=== PATIENT | male | born 1975 | race Two or more races ===

== ENCOUNTER 2024-07-24 02:22 | Emergency (ER) | payer OTHER ==
[~2024-07-24] VITALS: Ht 180.3 cm; Wt 101.7 kg
[2024-07-24 02:22] VITALS: BP 138/84; PULSE 92; RESP 12; TEMP 99.2; O2SAT 96
--- NOTE | 2024-07-24 02:48 | ED.PDOC ---
History of Present Illness HPI Comments 49-year-old male presents with a chief complaint of abdominal pain, SOB, hematemesis, alcohol abuse, and methamphetamine abuse. Denies any black or bloody stool. He reports bright red blood in the vomit with a past 2 weeks. Patient reports history of peptic ulcer disease with perforated ulcer in the past. He has not follow up with the primary care provider since he has been released from shelter. Chief Complaint: Shortness of Breath Time Seen by MD: 02:37 Reviewed Notes: Medications, Allergies Allergies: Coded Allergies: NO KNOWN ALLERGIES (Unverified , 07/24/24) Information Source: Patient Mode of Arrival: Ambulatory Severity: Moderate Timing: Weeks Duration: Intermittent Prehospital treatment: None Vital Signs Vital Signs Date Time Temp Pulse Resp B/P (MAP) Pulse Ox O2 Delivery O2 Flow Rate FiO2 07/24/24 02:22 99.2 92 12 138/84 (102) 96 99.2 Physical Exam General: Awake, alert and oriented. No acute distress. Skin: Skin in warm, dry and intact. Appropriate color for ethnicity. HEENT: The head is normocephalic and atraumatic. Conjunctivae are clear without exudates or hemorrhage. Sclera is non-icteric. EOM are intact. No signs of nystagmus. Eyelids are normal in appearance without swelling or lesions. Oral mucosa is pink and moist Neck: The neck is supple with normal range of motion. No JVD. Cardiac: Heart rate and rhythm are normal. No murmurs, gallops, or rubs are auscultated. Respiratory: No signs of respiratory distress. Lung sounds are clear in all lobes bilaterally without rales, rhonchi, or wheezes. Abdominal: Abdomen is soft, generally tender without distention. No CVA tenderness Bowel sounds are present and normoactive in all four quadrants. Extremities: Upper and lower extremities are atraumatic in appearance without deformity or edema. Neurological: The patient is awake, alert and oriented to person, place, and time with normal speech. Speech is clear. There is no facial asymmetry. Psychiatric: Appropriate mood and affect. Review of Systems: REVIEW OF SYSTEMS: No fever, no chills, or fatigue HEENT: No sore throat, no earache, no congestion, no neck pain. Cardiac: No chest pain. No palpitations. Lungs: No shortness of breath, no cough. GI: No nausea, no vomiting, no diarrhea, no constipation, no abdominal pain : No dysuria, frequency, or urgency. No hematuria. Musculoskeletal: No joint pain , no joint swelling, no extremity edema. Skin: No rash, no itching. Neuro: No headache, no dizziness, no weakness Past Medical History PAST MEDICAL HISTORY: High Lipids Past Medical History (Other): Gastric Ulcer Disease Surgical History: Denies all surgeries Family History Family History: Reviewed,noncontributory to illness Social History Smoker: Cigarettes Alcohol: Heavy Drugs: Methamphetamine Lives In: Home Was a procedure done? Was a procedure done?: No Differential Dx Considerations may include: Differential diagnoses considered includebut arenot limited to acute Bronchitis, Asthma, COPD, Pneumothorax, PE, CHF, Pulmonary HTN, Anemia, CO Poisoning, Methemoglobinemia, Hyperventilation, Metabolic Acidosis, Pulmonary Edema, Pneumonia, ACS, Pericardial Tamponade, Anxiety, peptic ulcer disease, esophageal varices,Barrera's esophagus, cancer, diverticular disease, esophageal rupture/perforation, Aylin-Winchester tear, other X-Ray, Labs, Meds, VS Vital Signs Date Time Temp Pulse Resp B/P (MAP) Pulse Ox O2 Delivery O2 Flow Rate FiO2 07/24/24 02:22 99.2 92 12 138/84 (102) 96 99.2 Time of 1ST Reevaluation: 03:07 Reevaluation 1ST: Unchanged Patient Education/Counseling: Need For Follow Up Family Education/Counseling: No Family Present Departure 1 Departure Time of Disposition: 02:45 Impression: Primary Impression: Shortness of breath Additional Impression: Bloody vomitus Disposition: LEFT AGAINST MEDICAL ADVICE Condition: Other Comments 49-year-old male presented to the emergency department with reports of shortness of breath, vomiting blood, history of perforated peptic ulcer in the past. Patient was seen, evaluated and examined in the triage area. Discussed with the patient options for diagnostic workup and treatment. Patient's stated he did not want to wait as he has to be at work at 6 in the morning. He stated he would return to the emergency department after work for evaluation. Despite our efforts, patient has decided to leave against medical advice. The patient has a normal mental status and full decisional capacity. Patient has been informed of the benefits of staying such as delay in diagnosis and treatment, further diagnosis and treatment of possible serious etiology of the symptoms, and the risks of leaving such as , chronic pain, permanent disability or other serious adverse events which might be attributed to leaving. The patient displays clear understanding of these benefits and risks and chooses to leave. The patient has been informed also that he may return here at any time if he changes his mind or needs to further concerns or questions. Critical Care Note Critical Care Time?: No Stability Stability form required: No Heart Score Heart Score: Heart Score Response (Comments) Value History N/A 0 EKG N/A 0 Age N/A 0 Risk Factors N/A 0 Troponin N/A 0 Total 0 I personally scribed for JOSE ALFREDO NAYAK MD ([email or web address]) on 07/24/24 at 02:48. Electronically submitted by Hussain Cordero ([email or web address]). I personally scribed for JOSE ALFREDO NAYAK MD ([email or web address]) on 07/24/24 at 02:49. Electronically submitted by Hussain Cordero ([email or web address]). JOSE ALFREDO NAYAK MD Jul 24, 2024 02:48
== END 2024-07-24 02:45 | disposition left against medical advice (07) ==
LOC: ER 02:22
DX: R06.02 Shortness of breath (principal); K92.0 Hematemesis; E78.5 Hyperlipidemia, unspecified; F17.210 Nicotine dependence, cigarettes, uncomplicated; F15.10 Other stimulant abuse, uncomplicated; Z87.11 Personal history of peptic ulcer disease

== ENCOUNTER 2024-07-24 21:56 | Emergency (ER) | payer OTHER ==
[~2024-07-24] VITALS: Ht 180.3 cm; Wt 100.0 kg
[2024-07-24 22:40] VITALS: BP 139/101; PULSE 102; RESP 18; TEMP 97.6; O2SAT 97
[2024-07-24 22:48] LABS: Basophils # (auto) 0.1 10 ^3/uL (0-0.2); Basophils % (auto) 1.4 % (0.0-2.0); Eosinophils # (auto) 0.1 10 ^3/uL (0-0.8); Hematocrit 46.7 % (41.0-53.0); Hemoglobin 15.6 g/dL (13.5-17.5); Lymphocytes # (auto) 1.2 10 ^3/uL (0.4-5.4); Mean Corpuscular Hemoglobin 30.6 pg (28.0-32.0); Mean Corpuscular Hgb Conc. 33.4 g/dL (32.0-36.0); Mean Corpuscular Volume 91.7 fL (80.0-100.0); Monocytes # (auto) 0.5 10 ^3/uL (0-1.3); Monocytes % (auto) 7.1 % (0.0-12.0); Neutrophils # (auto) 5.5 10 ^3/uL (1.6-8.6); Neutrophils % (auto) 73.5 % (37.0-80.0); Platelet Count (auto) 269 10^3/uL (140-450); Red Blood Cells 5.09 10^6/uL (4.5-5.90); Red Cell Distribution Width 14.4 % (11.8-14.3); White Blood Cell 7.5 10^3/uL (4.4-10.8)
[2024-07-24 23:12] LABS: INR 1.01 (0.9-1.15); Partial Thromboplastin Time 29.9 SEC (24.5-34.5); Prothrombin Time 10.7 sec (9.3-11.8)
--- NOTE | 2024-07-24 23:12 | ED.PDOC ---
SOB-HPI HPI Comments HPI: Poor Historian. 49-year-old male presents to emergency department after he left against medical advice last night here in the ED. patient came to the hospital yesterday for shortness of breath cough and suspected hematemesis versus hematochezia he is not sure. He had to go to work and that is why he left and he returned today for further evaluation and treatment. Patient states the symptoms of shortness of breath has been there for at least two weeks. Past Medical History: Methamphetamine and alcohol abuse, most recently used yesterday. Hyperlipidemia, bleeding peptic ulcer disease Past Surgical History: Upper endoscopy for history of peptic ulcer disease. REVIEW OF SYSTEMS: CONSTITUTIONAL: Denies acute: fever, diaphoresis, chills, HEAD: Denies acute: headache, photophobia Eyes: Denies acute: Double vision, vision loss, eye pain, eye discharge. EARS: Denies acute: tinnitus, hearing loss, ear discharge, ear pain, THROAT: Denies acute: sore throat, swelling, difficulty swallowing , pain with swallowing, change in voice. NECK: Denies acute: neck pain, neck swelling, stiff neck. HEART: Denies acute : palpitations, LUNGS: Denies acute: wheezing, ABDOMEN: Denies acute: abdominal pain, Nausea, Vomiting, diarrhea, melena , hematochezia SKIN: Denies acute: rash, redness, lesions, itchiness. EXTREMITIES: Denies acute: calf pain, numbness, tingling, weakness, denies pain in extremity. Denies acute: Low back pain. Neuro: Denies acute: focal neurological deficit, motor or sensory focal neurological deficit, tremors, seizure like activity, confusion, dizziness, change in mental status, loss of bowel or bladder function, cauda equina like symptoms. : Denies acute: dysuria, hematuria, flank pain, increase in urinary frequency. PSYCH: Denies acute: hallucination, suicidal ideation, homicidal ideation. PHYSICAL EXAM: General: ----mild----acute distress, awake and alert. Head: normocephalic, atraumatic. Neck: supple, trachea is midline, no swelling. Throat: Normal phonation. Eyes:, no erythema, no purulent discharge, no proptosis, no icterus. Heart: regular rate, regular rhythm, no significant murmur appreciated. Lungs: no apparent respiratory distress, Able to speak in full sentences. No wheezing, no rhonchi, no crackles. No stridors Clear to auscultation bilaterally. Abdomen: non tender to palpation, non distended, soft, no guarding, no rebound, + bowel sounds. Neuro: Awake, Alert, oriented to name, self, situation, follows commands GCS=15. Speech is normal. Skin: no petechia, no purpura, no cyanosis, non-pale, not jaundice. Lower extremities: --trace bilateral - Pitting edema no deformity, no focal swelling, no calf TTP. Makes eye contact. moves all four extremities. Face: no apparent facial droop. Ambulating in the ED independently. ED COURSE: Chief Complaint: Shortness of Breath Time Seen by MD: 22:12 Reviewed notes: Nurses Notes, Allergies Information Source: Patient Past Medical History PAST MEDICAL HISTORY: High Lipids Surgical History: Denies all surgeries Family History Family History: Reviewed,noncontributory to illness Social History Smoker: Cigarettes Alcohol: Heavy Drugs: Methamphetamine Lives In: Home Was a procedure done? Was a procedure done?: No Differential Dx Differential Diagnosis: Other (DDx include ACS, unstable angina, anxiety, PE, pneumothroax, neoplasm, cardiac ischemia, COPD, asthma, CHF, pleural effusion, tobacco abuse, pneumonia, hypoxia, hypercapnia, anemia., infection/sepsis., pulmonary edema. Asthma, Cardiac tamponade, infection.) X-Ray, Labs, Meds, VS Vital Signs Date Time Temp Pulse Resp B/P (MAP) Pulse Ox O2 Delivery O2 Flow Rate FiO2 07/24/24 22:40 97.6 102 18 139/101 (114) 97 97.6 Lab Test 07/25/24 00:57 07/24/24 23:59 07/24/24 23:55 07/24/24 23:54 Range/Units Blood Gas Specimen Type Arterial Blood Gas Sample Site Right radial Blood Gas Patient Temperature 37.0 Arterial Blood Date Drawn [id number] Arterial Blood pH 7.463 H 7.350-7.450 Arterial Blood Partial Pressure CO2 31.4 L 35.0-48.0 mmHg Arterial Blood Partial Pressure O2 60.1 L 83.0-108.0 mmHg Arterial Blood HCO3 22.0 21.0-28.0 mmol/L Arterial Blood Oxygen Saturation 91.8 L 94.0-98.0 % Arterial Blood Base Excess -0.7 -2.0-3.0 mmol/L Arterial Blood Oxyhemoglobin 89.1 L 94.0-98.0 % Arterial Blood Carboxyhemoglobin 2.7 H 0.5-1.5 % Arterial Blood Methemoglobin 0.2 0.0-1.5 % Kenny Test Modified Blood Gas Total Hemoglobin 16.40 13.5-17.5 g/dL Blood Gas Modality Room air FiO2 % 21.0 Troponin I High Sensitivity 5 </=54 ng/L Urine Opiates Screen Neg NEGATIVE Urine Fentanyl Screen Neg NEGATIVE Urine Barbiturates Screen Neg NEGATIVE Urine Phencyclidine Screen Neg NEGATIVE Urine Amphetamines Screen Pos NEGATIVE Urine Benzodiazepines Screen Neg NEGATIVE Urine Cocaine Screen Neg NEGATIVE Urine Cannabinoids Screen Neg NEGATIVE Urine Color Light-yellow Yellow Urine Clarity Clear Clear Urine pH 5.5 5.0-9.0 Urine Specific [place] 1.031 1.001-1.035 Urine Protein Negative Negative Urine Ketones Negative Negative Urine Blood Negative Negative /uL Urine Nitrite Negative Negative Urine Bilirubin Negative Negative Urine Urobilinogen Normal Negative mg/dL Urine Leukocyte Esterase Negative Negative /uL Urine RBC <1 0 - 3 /hpf Urine Microscopic WBC 1 0-3 /HPF Urine Squamous Epithelial Cells None seen <5 /hpf Urine Bacteria None seen None Seen /hpf Urine Glucose Normal Normal mg/dL Test 07/24/24 22:53 07/24/24 22:33 Range/Units Sodium Level 138 136-145 mmol/L Potassium Level 3.9 3.5-5.1 mmol/L Chloride Level 106 98-107 mmol/L Carbon Dioxide Level 24 20-31 mmol/L Anion Gap 8 5-15 Blood Urea Nitrogen 19 9-23 mg/dL Creatinine 1.26 0.700-1.30 mg/dL Glomerular Filtration Rate Calc 70 >90 mL/min BUN/Creatinine Ratio 15.1 10.0-20.0 Serum Glucose 104 74-106 mg/dL Calcium Level 9.4 8.7-10.4 mg/dL Total Bilirubin 0.4 0.2-1.0 mg/dL Aspartate Amino Transferase (AST) 35 13-40 U/L Alanine Aminotransferase (ALT) 23 7-40 U/L Alkaline Phosphatase 116 46-116 U/L B-Type Natriuretic Peptide 8.44 0-100 pg/mL Total Protein 7.5 5.7-8.2 g/dL Albumin 4.6 3.2-4.8 g/dL White Blood Count 7.5 4.4-10.8 10^3/uL Red Blood Count 5.09 4.5-5.90 10^6/uL Hemoglobin 15.6 13.5-17.5 g/dL Hematocrit 46.7 41.0-53.0 % Mean Corpuscular Volume 91.7 80.0-100.0 fL Mean Corpuscular Hemoglobin 30.6 28.0-32.0 pg Mean Corpuscular Hemoglobin Concent 33.4 32.0-36.0 g/dL Red Cell Distribution Width 14.4 H 11.8-14.3 % Platelet Count 269 140-450 10^3/uL Mean Platelet Volume 7.2 6.9-10.8 fL Neutrophils (%) (Auto) 73.5 37.0-80.0 % Lymphocytes (%) (Auto) 16.0 10.0-50.0 % Monocytes (%) (Auto) 7.1 0.0-12.0 % Eosinophils (%) (Auto) 2.0 0.0-7.0 % Basophils (%) (Auto) 1.4 0.0-2.0 % Neutrophils # (Auto) 5.5 1.6-8.6 10 ^3/uL Lymphocytes # (Auto) 1.2 0.4-5.4 10 ^3/uL Monocytes # (Auto) 0.5 0-1.3 10 ^3/uL Eosinophils # (Auto) 0.1 0-0.8 10 ^3/uL Basophils # (Auto) 0.1 0-0.2 10 ^3/uL Nucleated Red Blood Cells 0.0 % Prothrombin Time 10.7 9.3-11.8 sec Prothrombin Time INR 1.01 0.9-1.15 Activated Partial Thromboplast Time 29.9 24.5-34.5 SEC D-Dimer, Quantitative 0.33 0.0-0.49 mg/L FEU Lactic Acid Level 1.4 0.4-2.0 mmol/L Troponin I High Sensitivity 5 </=54 ng/L [place] [address] Ph: [phone] DIAGNOSTIC IMAGING Diagnostic Imaging Report : [id number] Signed PATIENT: ROBEL DAVIS ACCT: [id number] UNIT: [id number] : 1975 LOC: ER ROOM / BED: / AGE / SEX: 49 / M ADM STATUS: REG ER SERVICE 14 ORDERING PHYSICIAN: GOPAL FITZPATRICK DO PROCEDURE(s): CXRP - CHEST PORTABLE REASON: sob ORDER NUMBER(s): [id number], ACCESSION NUMBER(s): [id number] CHEST RADIOGRAPH Indication: sob Technique: Single frontal view of the chest was obtained COMPARISON: None FINDINGS: Lines and Tubes: None Lungs: Clear Pleura: No effusion. No pneumothorax. Cardiomediastinal contours: Unremarkable Bones: Unremarkable IMPRESSION: No abnormality. ATED BY: BRAVO QUINTEROS MD DICTATED DATE/TIME: 07/25/246 SIGNED BY: BRAVO QUINTEROS MD SIGNED DATE/TIME: 07/25/246 CC: Time of 1ST Reevaluation: 00:00 Reevaluation 1ST: Unchanged Patient Education/Counseling: Diagnosis, Treatment Family Education/Counseling: Other Comments Patient presented with the above HPI.---hematemesis versus hemoptysis and respiratory symptoms---workup was initiated. patient was found with the above mentioned diagnosis. the following medications were ordered: please refer to order lists of meds and tests obtained by myself Dr. Fitzpatrick. Patient ED course and VS have been stabilized. Patient has been reassessed in the ED and remained in a stable condition. Pertinent incidental findings were discussed with the patient and/or family. Patient/family voices understanding and is agreeable with plan. Patient has been observed in the ED adequate length of time to insure improvement/stability. Escalation of care considered: Consideration of escalation to observation or admission Patient was ADMITTED to the medicine team for further evaluation and treatment of their presentation. Patient was not witnessed having any hematemesis or hemoptysis here in the ED. All the reports of any imaging studies that were ordered by myself were reviewed by myself. Departure 1 Departure Time of Disposition: 00:46 Impression: Primary Impression: Chest pain Additional Impressions: Dyspnea Hematemesis Methamphetamine abuse Hypoxemia Disposition: 09 ADMITTED INPATIENT Admit to: Tele Condition: Guarded Discharged With: Self Critical Care Note Critical Care Time?: Yes (35 min-critical care time only) Heart Score Heart Score: Heart Score Response (Comments) Value History Slightly Suspicious 0 EKG Normal 0 Age 45-64 1 Risk Factors 1 or 2 risk factors 1 Troponin Normal limit 0 Total 2 I personally scribed for GOPAL FITZPATRICK DO ([email or web address]) on 07/25/24 at 15:47. Electronically submitted by Reji Valero ([facility] GOPAL FITZPATRICK DO Jul 24, 2024 23:12
[2024-07-24] MEDS ORDERED: PANTOPRAZOLE 40 MG/10 ML VIAL INJ IV ONE (23:15)
[2024-07-24 23:42] LABS: Alanine Aminotransferase 23 U/L (7-40); Albumin 4.6 g/dL (3.2-4.8); Alkaline Phosphatase 116 U/L (46-116); Anion Gap 8 (5-15); Aspartate Aminotransferase 35 U/L (13-40); BUN/Creatinine Ratio 15.1 (10.0-20.0); Blood Urea Nitrogen 19 mg/dL (9-23); Calcium 9.4 mg/dL (8.7-10.4); Carbon Dioxide 24 mmol/L (20-31); Chloride 106 mmol/L (98-107); Glucose 104 mg/dL (74-106); Potassium 3.9 mmol/L (3.5-5.1); Sodium 138 mmol/L (136-145); Total Protein 7.5 g/dL (5.7-8.2)
[2024-07-24 23:43] LABS: Bilirubin, Total 0.4 mg/dL (0.2-1.0)
[2024-07-24 23:56] LABS: Urine Bacteria None Seen /hpf (None Seen)
[2024-07-25 00:04] LABS: Urine Blood Negative /uL (Negative); Urine Clarity Clear (Clear); Urine Color Light-Yellow (Yellow); Urine Protein, UAD Negative (Negative); Urine Specific Gravity 1.031 (1.001-1.035); Urine Squamous Epithelial Cell None Seen /hpf (<5); Urine Urobilinogen Normal (Negative); Urine WBC 1 /HPF (0-3); Urine pH 5.5 (5.0-9.0)
--- NOTE | 2024-07-25 00:09 | DVH ---
CHEST RADIOGRAPH Indication: sob Technique: Single frontal view of the chest was obtained COMPARISON: None FINDINGS: Lines and Tubes: None Lungs: Clear Pleura: No effusion. No pneumothorax. Cardiomediastinal contours: Unremarkable Bones: Unremarkable IMPRESSION: No abnormality.
[2024-07-25 01:01] LABS: Base Excess -0.7 mmol/L (-2.0-3.0)
[2024-07-25 15:58] LABS: Opiate Scree,Urine Neg (NEGATIVE); Phencyclidine Screen, Urine Neg (NEGATIVE)
[2024-07-25 16:02] LABS: Cannabinoid Screen, Urine Neg (NEGATIVE)
[2024-07-25 16:03] LABS: Amphetamine Screen, Urine Pos (NEGATIVE); Barbiturate Scree,Urine Neg (NEGATIVE); Benzodiazephine Screen, Urine Neg (NEGATIVE); Cocaine Screen, Urine Neg (NEGATIVE)
== END 2024-07-25 03:06 | disposition left against medical advice (07) ==
LOC: ER 21:56
DX: R07.89 Other chest pain (principal); R06.00 Dyspnea, unspecified; K92.0 Hematemesis; E78.5 Hyperlipidemia, unspecified; F17.210 Nicotine dependence, cigarettes, uncomplicated; F12.90 Cannabis use, unspecified, uncomplicated; Z79.899 Other long term (current) drug therapy
CPT/HCPCS: 36415; 36600; 71045; 80053; 80307; 81001; 82805; 83605; 83880; 84484; 85025; 85379; 85610; 85730; 86850; 86900; 86901

== ENCOUNTER 2024-09-05 18:05 | Emergency (ER) | payer OTHER ==
[~2024-09-05] VITALS: Ht 180.3 cm; Wt 100.3 kg
--- NOTE | 2024-09-05 19:01 | ED.PDOC ---
History of Present Illness HPI Comments 49-year-old male who came to ER for abdominal pain. Patient has an umbilical hernia. Patient has been having cough and shortness a breath for over a month, has been treated as bronchitis. Patient states whenever he coughs, he feels his umbilical hernia protruding, causing him pain. He denies any nausea or vomiting, denies any changes in bowel habits. Chief Complaint: Abdominal Pain Time Seen by MD: 19:01 Primary Care Provider: UNKNOWN Reviewed Notes: Nurses Notes Allergies: Coded Allergies: NO KNOWN ALLERGIES (Unverified , 07/24/24) Home Meds Active Scripts Ondansetron HCl (Ondansetron Hydrochloride) 8 Mg Tab, 8 MG PO Q6HP PRN, #30 TAB Prov:FREDI CASANOVA MD 09/06/24 Gabapentin (Once-Daily) (Gabapentin) 300 Mg Tab, 300 MG PO Q6HP PRN, #60 TAB Prov:FREDI CASANOVA MD 09/06/24 Information Source: Patient Mode of Arrival: Ambulatory Severity: Moderate Timing: Days Duration: Since onset Past Medical History PAST MEDICAL HISTORY: High Lipids Past Medical History (Other): Umbilical hernia Surgical History: Denies all surgeries Family History Family History: Reviewed,noncontributory to illness Social History Smoker: Cigarettes Alcohol: Occasionally Drugs: Methamphetamine Lives In: Home Constitutional: denies: chills, diaphoresis, fatigue, fever, malaise, sweats, weakness, others EENTM: denies: blurred vision, double vision, ear bleeding, ear discharge, ear drainage, ear pain, ear ringing, eye pain, eye redness, hearing loss, mouth pain, mouth swelling, nasal discharge, nose bleeding, nose congestion, nose pain, photophobia, tearing, throat pain, throat swelling, voice changes, others Respiratory: reports: cough, shortness of breath; denies: hemoptysis, orthopnea, SOB at rest, SOB with excertion, stridor, wheezing, others Cardiovascular: denies: chest pain, dizzy spells, diaphoresis, Dyspnea on exertion, edema, irregular heart beat, left arm pain, lightheadedness, palpitations, PND, syncope, others Gastrointestinal: reports: abdominal pain; denies: abdomen distended, blood streaked bowels, constipated, diarrhea, dysphagia, difficulty swallowing, hem atemesis, melena, nausea, poor appetite, poor fluid intake, rectal bleeding, rectal pain, vomiting, others Genitourinary: denies: burning, dysuria, flank pain, frequency, hematuria, incontinence, penile discharge, penile sore, pain, testicle pain, testicle swelling, urgency, others Neurological: denies: dizziness, fainting, headache, left sided numbness, left sided weakness, numbness, paresthesia, pre-existing deficit, right sided numbness, right sided weakness, seizure, speech problems, tingling, tremors, weakness, others Musculoskeletal: denies: back pain, gout, joint pain, joint swelling, muscle pain, muscle stiffness, neck pain, others Integumetry: denies: bruises, change in color, change in hair/nails, dryness, laceration, lesions, lumps, rash, wounds, others Allergic/Immunocompromised: denies: Difficulty Healing, Frequent Infections, Hives, Itching, others Hematologic/Lymphatic: denies: anemia, blood clots, easy bleeding, easy bruising, swollen glands, others Endocrine: denies: excessive hunger, excessive sweating, excessive thirst, excessive urination, flushing, intolerance to cold, intolerance to heat, unexplained weight gain, unexplained weight loss, others Psychiatric: denies: anxiety, bipolar disorder, depression, hopeless, panic disorder, schizophrenia, sleepless, suicidal, others Physical Exam General Appearance: No Apparent Distress, Normal HEENT: Normal ENT Inspection, Pharynx Normal, TMs Normal Neck: Full Range of Motion, Non-Tender, Normal, Normal Inspection Respiratory: Chest Non-Tender, Lungs Clear, No Accessory Muscle Use, No Respiratory Distress, Normal Breath Sounds Cardiovascular: No Edema, No JVD, No Murmur, No Gallop, Normal Peripheral Pulses, Regular Rate/Rhythm Breast Exam: Deferred Gastrointestinal: Epigastric, No Organomegaly, No Pulsatile Mass, Normal Bowel Sounds, Soft, Tenderness Genitalia: Deferred Pelvic: Deferred Rectal: Deferred Extremities: No calf tenderness, Normal capillary refill, Normal inspection, Normal range of motion, Non-tender, No pedal edema Musculoskeletal : Apperance: Normal Neurologic: Alert, food assembler kitchen II-XII nml as Tested, No Motor Deficits, Normal Affect, Normal Mood, No Sensory Deficits Cerebellar Function: Normal Reflexes: Normal Skin: Dry, Normal Color, Warm Lymphatic: No Adenopathy Was a procedure done? Was a procedure done?: No Differential Dx Considerations may include: Bronchitis, pneumonia, hernia, bowel obstruction, gastritis X-Ray, Labs, Meds, VS Vital Signs Date Time Temp Pulse Resp B/P (MAP) Pulse Ox O2 Delivery O2 Flow Rate FiO2 09/06/24 00:48 80 16 146/90 09/05/24 22:55 93 18 147/119 09/05/24 22:47 98.0 93 18 147/119 (128) 97 98.0 09/05/24 21:29 98.3 87 14 146/97 (113) 98 98.3 09/05/24 18:49 97.0 91 16 146/101 (116) 94 97.0 Lab Test 09/05/24 20:01 09/05/24 19:14 Range/Units Urine Color Light-yellow Yellow Urine Clarity Clear Clear Urine pH 5.5 5.0-9.0 Urine Specific [place] 1.030 1.001-1.035 Urine Protein Negative Negative Urine Ketones Negative Negative Urine Blood Negative Negative /uL Urine Nitrite Negative Negative Urine Bilirubin Negative Negative Urine Urobilinogen Normal Negative mg/dL Urine Leukocyte Esterase Negative Negative /uL Urine RBC 3 0 - 3 /hpf Urine Microscopic WBC 1 0-3 /HPF Urine Squamous Epithelial Cells None seen <5 /hpf Urine Calcium Oxalate Crystals Few None Seen Urine Bacteria None seen None Seen /hpf Urine Glucose Normal Normal mg/dL White Blood Count 6.3 4.4-10.8 10^3/uL Red Blood Count 5.49 4.5-5.90 10^6/uL Hemoglobin 16.5 13.5-17.5 g/dL Hematocrit 48.5 41.0-53.0 % Mean Corpuscular Volume 88.2 80.0-100.0 fL Mean Corpuscular Hemoglobin 30.0 28.0-32.0 pg Mean Corpuscular Hemoglobin Concent 34.0 32.0-36.0 g/dL Red Cell Distribution Width 14.6 H 11.8-14.3 % Platelet Count 299 140-450 10^3/uL Mean Platelet Volume 7.6 6.9-10.8 fL Neutrophils (%) (Auto) 66.4 37.0-80.0 % Lymphocytes (%) (Auto) 25.9 10.0-50.0 % Monocytes (%) (Auto) 5.7 0.0-12.0 % Eosinophils (%) (Auto) 1.0 0.0-7.0 % Basophils (%) (Auto) 1.0 0.0-2.0 % Neutrophils # (Auto) 4.2 1.6-8.6 10 ^3/uL Lymphocytes # (Auto) 1.6 0.4-5.4 10 ^3/uL Monocytes # (Auto) 0.4 0-1.3 10 ^3/uL Eosinophils # (Auto) 0.1 0-0.8 10 ^3/uL Basophils # (Auto) 0.1 0-0.2 10 ^3/uL Nucleated Red Blood Cells 0.1 % Sodium Level 141 136-145 mmol/L Potassium Level 3.8 3.5-5.1 mmol/L Chloride Level 107 98-107 mmol/L Carbon Dioxide Level 23 20-31 mmol/L Anion Gap 11 5-15 Blood Urea Nitrogen 21 9-23 mg/dL Creatinine 1.17 0.700-1.30 mg/dL Glomerular Filtration Rate Calc 77 >90 mL/min BUN/Creatinine Ratio 17.9 10.0-20.0 Serum Glucose 122 H 74-106 mg/dL Calcium Level 9.9 8.7-10.4 mg/dL Total Bilirubin 0.3 0.2-1.0 mg/dL Aspartate Amino Transferase (AST) 20 13-40 U/L Alanine Aminotransferase (ALT) 21 7-40 U/L Alkaline Phosphatase 119 H 46-116 U/L Total Protein 7.8 5.7-8.2 g/dL Albumin 4.9 H 3.2-4.8 g/dL Lipase 40 12-53 U/L Current Medications Medications (Trade) Dose Ordered Sig/Jagruti Route Start Time Stop Time Status Last Admin Ondansetron HCl (Zofran) 4 mg ONCE ONCE IV 09/05/24 19:00 09/05/24 19:01 DC 09/05/24 22:54 Sodium Chloride 1,000 ml @ 1,000 mls/hr Q1H ONCE IVB 09/05/24 19:00 09/05/24 19:59 DC 09/05/24 22:49 Morphine Sulfate 4 mg ONCE ONCE IV 09/05/24 19:00 09/05/24 19:01 DC 09/05/24 22:55 Time of 1ST Reevaluation: 18:58 Reevaluation 1ST: Unchanged Patient Education/Counseling: Diagnosis, Treatment Family Education/Counseling: No Family Present Departure 1 Departure Time of Disposition: 21:00 Impression: Primary Impression: Abdominal pain Disposition: HOME / SELF CARE / HOMELESS Condition: Stable e-Prescriptions Ondansetron HCl (Ondansetron Hydrochloride) 8 Mg Tab 8 MG PO Q6HP PRN, #30 TAB Prov: FREDI CASANOVA MD 09/06/24 Gabapentin (Once-Daily) (Gabapentin) 300 Mg Tab 300 MG PO Q6HP PRN, #60 TAB Prov: FREDI CASANOVA MD 09/06/24 Discharged With: Self Critical Care Note Critical Care Time?: No Stability Stability form required: No Heart Score Heart Score: Heart Score Response (Comments) Value History N/A 0 EKG N/A 0 Age N/A 0 Risk Factors N/A 0 Troponin N/A 0 Total 0 I personally scribed for FREDI CASANOVA MD ([email or web address]) on 09/05/24 at 19:01. Electronically submitted by Aaron Devlin ([email or web address]). FREDI CASANOVA MD September 05, 2024 19:01
[2024-09-05 19:28] LABS: Basophils # (auto) 0.1 10 ^3/uL (0-0.2); Eosinophils # (auto) 0.1 10 ^3/uL (0-0.8); Hematocrit 48.5 % (41.0-53.0); Hemoglobin 16.5 g/dL (13.5-17.5); Lymphocytes # (auto) 1.6 10 ^3/uL (0.4-5.4); Lymphocytes % (auto) 25.9 % (10.0-50.0); Mean Corpuscular Volume 88.2 fL (80.0-100.0); Monocytes # (auto) 0.4 10 ^3/uL (0-1.3); Monocytes % (auto) 5.7 % (0.0-12.0); Neutrophils # (auto) 4.2 10 ^3/uL (1.6-8.6); Neutrophils % (auto) 66.4 % (37.0-80.0); Nucleated Red Blood Cells % 0.1 %; Platelet Count (auto) 299 10^3/uL (140-450); Red Blood Cells 5.49 10^6/uL (4.5-5.90); Red Cell Distribution Width 14.6 % (11.8-14.3); White Blood Cell 6.3 10^3/uL (4.4-10.8)
[2024-09-05 19:45] LABS: Alanine Aminotransferase 21 U/L (7-40); Anion Gap 11 (5-15); Aspartate Aminotransferase 20 U/L (13-40); BUN/Creatinine Ratio 17.9 (10.0-20.0); Blood Urea Nitrogen 21 mg/dL (9-23); Calcium 9.9 mg/dL (8.7-10.4); Carbon Dioxide 23 mmol/L (20-31); Lipase 40 U/L (12-53); Potassium 3.8 mmol/L (3.5-5.1); Sodium 141 mmol/L (136-145); Total Protein 7.8 g/dL (5.7-8.2)
[2024-09-05 19:46] LABS: Albumin 4.9 g/dL (3.2-4.8); Alkaline Phosphatase 119 U/L (46-116); Bilirubin, Total 0.3 mg/dL (0.2-1.0); Chloride 107 mmol/L (98-107); Glucose 122 mg/dL (74-106)
[2024-09-05 20:03] LABS: Urine Bacteria None Seen /hpf (None Seen)
[2024-09-05 20:15] LABS: Urine Blood Negative /uL (Negative); Urine Clarity Clear (Clear); Urine Color Light-Yellow (Yellow); Urine Protein, UAD Negative (Negative); Urine Squamous Epithelial Cell None Seen /hpf (<5); Urine Urobilinogen Normal (Negative); Urine WBC 1 /HPF (0-3); Urine pH 5.5 (5.0-9.0)
[2024-09-05] MEDS: IOHEXOL 300 MG/ML 100ML BOTTLE IJ ONE (22:34)
[2024-09-05 22:47] VITALS: TEMP 98; O2SAT 97
[2024-09-05] MEDS: SODIUM CHLORIDE 0.9% 1,000 ML IVB ONE (22:49)
[2024-09-05] MEDS: ONDANSETRON HCL 4 MG/2 ML VIAL IV ONE (22:54)
[2024-09-05] MEDS: MORPHINE SULFATE 4 MG/ML SYR/VIAL IV ONE (22:55)
--- NOTE | 2024-09-05 23:46 | DVH ---
Exam: CT CT AB PEL WITH IV CON ONLY History: abd pain periumbilical COMPARISON: None Technique: Multidetector spiral CT of the abdomen and pelvis was performed from lung bases to pubic s ymphysis. Intravenous contrast was administered during this examination. Portal venous imaging was obtained. Axial, coronal and sagittal multiplanar reformats were performed by the technologist on a separate workstation. Radiation Dose : 1. Abdomen/Pelvis: CTDIvol mGy, DLP mGy*cm. CONTRAST: Type of contrast: Contrast injected: ml Contrast ingested: ml Findings: Lung Bases: No abnormality demonstrated. Liver: Liver is normal in size but demonstrates diffuse mild decreased density consistent with fatty infiltration. No focal lesions noted. Gallbladder and Biliary Tree: No abnormality demonstrated. Spleen: No abnormality demonstrated. Pancreas: No abnormality demonstrated. Adrenal Glands: No abnormality demonstrated. Kidneys: No abnormality demonstrated. Bladder: Unremarkable Bowel: Stomach appears grossly unremarkable. No abnormally dilated or thick-walled loops of large or small bowel noted. Appendix appears unremarkable. Ascites: Absent Lymphadenopathy: No evidence of lymphadenopathy. Abdominal Wall and Mesentery: Small fat containing umbilical hernia and fat containing left inguinal hernia. Vasculature: Unremarkable. Pelvic Organs: Unremarkable Musculoskeletal: No bony lesions or fracture. Mild lumbar spondylosis. IMPRESSION: No acute abdominal or pelvic finding. Radiation optimization: All CT scans at this facility use at least one of these dose optimization lyndsay hniques: automated exposure control mA and/or kV adjustment per patient size (includes targeted exam s where dose is matched to clinical indication) or iterative reconstruction.
[2024-09-06] MEDS ORDERED: GABA300T4 PO (00:07)
[2024-09-06] MEDS ORDERED: ONDA-180 PO (00:07)
[2024-09-06 00:48] VITALS: BP 146/90; PULSE 80; RESP 16
== END 2024-09-06 00:42 | disposition home or self-care (01) ==
LOC: ER 18:05
DX: R10.13 Epigastric pain (principal); E78.5 Hyperlipidemia, unspecified; F17.210 Nicotine dependence, cigarettes, uncomplicated; F15.90 Other stimulant use, unspecified, uncomplicated
CPT/HCPCS: 36415; 74177; 80053; 81001; 83690; 85025; 96361; 96374; 96375; 99285; J2270; J2405; J7030; Q9967